=== PATIENT | female | born 2000 | race Two or more races ===

== ENCOUNTER 2024-05-21 18:37 | Inpatient (IN) | payer OTHER ==
[~2024-05-21] VITALS: Ht 165.1 cm; Wt 54.4 kg
[2024-05-21 20:07] LABS: BASOPHILS % 0.5 % (0.0-1.0); EOSINOPHILS # (AUTO) 0.4 (0.0-0.4); EOSINOPHILS % 4.6 % (0.0-6.0); HEMATOCRIT 35.4 % (34.2-44.1); HEMOGLOBIN 11.4 g/dL (12.0-16.0); LYMPHOCYTES # (AUTO) 2.2 (1.0-3.2); MEAN CORPUSCULAR HEMOGLOBIN 28.4 pg (28-32); MEAN CORPUSCULAR HGB CONC 32.2 g/dL (31-35); MEAN CORPUSCULAR VOLUME 88.1 fL (81-99); MONOCYTES # (AUTO) 0.6 (0.2-0.8); MONOCYTES % 7.8 % (4.4-11.3); NEUTROPHILS # (AUTO) 4.4 (2.1-6.9); NEUTROPHILS % 57.7 % (38.7-80.0); PLATELET COUNT 229 x10e3/uL (140-360); RED BLOOD COUNT 4.02 x10e6/uL (3.6-5.1); RED CELL DISTRIBUTION WIDTH 12.6 % (11.7-14.4); WHITE BLOOD COUNT 7.58 x10e3/uL (4.8-10.8)
[2024-05-21 20:22] LABS: ALBUMIN 3.8 g/dL (3.5-5.0); ALBUMIN/GLOBULIN RATIO 1.3 (0.8-2.0); BILIRUBIN,TOTAL 3.7 mg/dL (0.2-1.2); CALCIUM 9.3 mg/dL (8.4-10.2); CREATININE, SERUM 0.62 mg/dL (0.57-1.11); TOTAL PROTEIN 6.7 g/dL (6.5-8.1)
[2024-05-21 20:28] LABS: LIPASE 34 U/L (8-78)
[2024-05-21 20:35] LABS: BILIRUBIN,URINE LARGE (NEGATIVE); CLARITY,URINE SL CLOUDY (CLEAR); COLOR,URINE AMBER (YELLOW); GLUCOSE, URINE NEGATIVE (NEGATIVE); KETONES,URINE NEGATIVE (NEGATIVE); LEUKOCYTE ESTERASE ,URINE NEGATIVE (NEGATIVE); NITRITE,URINE NEGATIVE (NEGATIVE); PH,URINE 6.5 (5 - 7); PROTEIN,URINE DIPSTICK 1+ (NEGATIVE); URINE UROBILINOGEN 0.2 mg/dL (0.2 - 1)
[2024-05-21 20:50] LABS: AMORPHOUS SEDIMENT,URINE MODERATE (FEW); BACTERIA,URINE FEW /HPF; EPITHELIAL CELLS,URINE MODERATE /LPF
[2024-05-22] MEDS: Morphine 4mg INJECTION 4 MG/ML INJ IV PRN (02:51)
[2024-05-22] MEDS: ONDANSETRON HCL INJ 2MG/ML 2ML 2 MG/ML VIAL IV PRN (02:51)
[2024-05-22] MEDS: SODIUM CHLORIDE 0.9% 1000ML 1,000 ML IV SCH (02:52)
[2024-05-22 03:02] VITALS: PULSE 64; RESP 16; TEMP 98.4
[2024-05-22 08:00] VITALS: BP 111/71; PULSE 69; RESP 16; TEMP 97.9; O2SAT 100
[2024-05-22 10:53] VITALS: BP 111/71; PULSE 69; RESP 16; TEMP 97.9; O2SAT 100
[2024-05-22 16:00] VITALS: BP 106/70; PULSE 66; RESP 18; TEMP 97.9; O2SAT 100
[2024-05-22 20:00] VITALS: BP 118/68; PULSE 68; RESP 17; TEMP 98.9; O2SAT 100
[2024-05-22 21:20] VITALS: BP 118/68; PULSE 68; RESP 17; TEMP 98.9; O2SAT 100
[2024-05-23] VITALS (7 sets, daily range): BP systolic 107–139; BP diastolic 58–71; PULSE 73–98; RESP 16–18; TEMP 98.2–98.7; O2SAT 100
[2024-05-23 05:34] LABS: BASOPHILS % 0.4 % (0.0-1.0); EOSINOPHILS # (AUTO) 0.2 (0.0-0.4); EOSINOPHILS % 2.8 % (0.0-6.0); HEMATOCRIT 33.7 % (34.2-44.1); HEMOGLOBIN 11.2 g/dL (12.0-16.0); LYMPHOCYTES # (AUTO) 1.5 (1.0-3.2); LYMPHOCYTES % 19.3 % (18.0-39.1); MEAN CORPUSCULAR HEMOGLOBIN 29.2 pg (28-32); MEAN CORPUSCULAR HGB CONC 33.2 g/dL (31-35); MEAN CORPUSCULAR VOLUME 87.8 fL (81-99); MONOCYTES # (AUTO) 0.4 (0.2-0.8); MONOCYTES % 5.6 % (4.4-11.3); NEUTROPHILS # (AUTO) 5.5 (2.1-6.9); NEUTROPHILS % 71.4 % (38.7-80.0); PLATELET COUNT 213 x10e3/uL (140-360); RED BLOOD COUNT 3.84 x10e6/uL (3.6-5.1); RED CELL DISTRIBUTION WIDTH 12.6 % (11.7-14.4); WHITE BLOOD COUNT 7.63 x10e3/uL (4.8-10.8)
[2024-05-23 06:17] LABS: ALBUMIN 3.3 g/dL (3.5-5.0); ALBUMIN/GLOBULIN RATIO 1.2 (0.8-2.0); BILIRUBIN,TOTAL 4.1 mg/dL (0.2-1.2); CALCIUM 7.7 mg/dL (8.4-10.2); CREATININE, SERUM 0.62 mg/dL (0.57-1.11); POTASSIUM 3.5 mmol/L (3.5-5.1)
[2024-05-23 06:38] LABS: ANION GAP 16.5 mmol/L (8-16)
[2024-05-23] MEDS ORDERED: IOPAMIDOL 370 MG/ML 100 ML INFUS..BTL INJ ONE (09:55)
[2024-05-23 15:33] LABS: HEPATITIS B SURFACE AG (P) Nonreactive; HEPATITIS C ANTIBODY Nonreactive
[2024-05-24] VITALS: BP 121/78; PULSE 80; RESP 16; TEMP 98.4; O2SAT 100
[2024-05-24 04:00] VITALS: BP 118/73; PULSE 83; RESP 16; TEMP 98.1; O2SAT 100
[2024-05-24 08:00] VITALS: BP 118/71; PULSE 73; RESP 16; TEMP 98; O2SAT 100
[2024-05-24 08:45] VITALS: BP 118/71; PULSE 73; RESP 16; TEMP 98; O2SAT 100
[2024-05-24 12:11] VITALS: BP 117/73; PULSE 80; RESP 16; TEMP 98.2; O2SAT 100
[2024-05-24 16:01] VITALS: BP 107/66; PULSE 74; RESP 18; TEMP 98.5; O2SAT 98
== END 2024-05-24 19:18 | disposition short-term general hospital (02) | DRG 435 ==
LOC: ER 18:41 → ERHOLD 05-22 01:06 → MED/SURG 05-22 08:00
PROVIDERS: ADMIT Surgery; ATTEND Surgery
DX: C25.0 Malignant neoplasm of head of pancreas (principal); E43 Unspecified severe protein-calorie malnutrition; K83.1 Obstruction of bile duct; K82.8 Other specified diseases of gallbladder; R11.2 Nausea with vomiting, unspecified; R63.4 Abnormal weight loss; R74.8 Abnormal levels of other serum enzymes; Z68.20 Body mass index [BMI] 20.0-20.9, adult; Z71.3 Dietary counseling and surveillance; Z32.01 Encounter for pregnancy test, result positive; Z11.52 Encounter for screening for COVID-19
CPT/HCPCS: 36415; 74170; 74181; 76705; 76801; 76817; 80053; 81001; 82378; 83690; 84702; 85025; 86301; 99284; J2270; J2405; J2543; J7030; Q9967; U0002